=== PATIENT | male | born 1990 | race Caucasian/White ===

== ENCOUNTER 2023-06-07 09:50 | Emergency (ER) | payer OTHER, SELFPAY ==
[2023-06-07 09:54] VITALS: BP 134/70; PULSE 95; RESP 14; TEMP 36.4; O2SAT 99
[2023-06-07 10:01] VITALS: BP 134/70; PULSE 95; RESP 14; TEMP 36.4; O2SAT 99
--- NOTE | 2023-06-07 10:03 | ED.URI ---
HPI - URI/Sore Throat General Chief Complaint: Upper Respiratory Infection Stated Complaint: Sinus Congestion/Ear Pain History of Present Illness HPI Narrative: Patient presents with nasal congestion runny nose for the past week. Patient denies any fever and states he has taken [id number] DayQuil NyQuil for his symptoms. Patient also complains of left ear pain and a popping sensation and discomfort in the left ear. No drainage from the. Related Data Home Medications Medication Instructions Recorded Confirmed levothyroxine 137 mcg tablet mcg 06/07/23 (Synthroid) Allergies Allergy/AdvReac Type Severity Reaction Status Date / Time Sulfa (Sulfonamide Allergy Unknown Verified 06/07/23 10:00 Antibiotics) Review of Systems Review of Systems: CONSTITUTIONAL: Denies chills, or sweats. Reports fever and generalized body aches EYES: Denies visual changes, redness, or discharge. ENT: Denies otalgia. Reports nasal congestion runny nose and sore throat CARDIOVASCULAR: Denies chest pain, palpitations, or edema. RESPIRATORY: Denies dyspnea. Reports occasional cough GASTROINTESTINAL: Denies abdominal pain, nausea, vomiting, or diarrhea. GENITOURINARY: Denies dysuria or hematuria. SKIN: Denies rash or itching. MUSCULOSKELETAL: Denies back pain, joint pain, or myalgia. Reports generalized body aches NEUROLOGIC: Denies headache, numbness, or weakness. PSYCHIATRIC: Denies anxiety or depression. PMFSH Comments At time of signature, agree with nursing past medical, surgical, social and family history. There is no relevant family history pertinent to the presenting complaint Exam Narrative: The patient is a well-developed, well-nourished in no acute distress. SKIN: Skin is warm and dry without erythema, swelling or exudate. There is good turgor. No tenting. HEAD: Atraumatic. Normocephalic. No temporal or scalp tenderness. EYES: Moist and bright. Sclera and conjunctivae normal. No discharge. PERRLA. Extraocular motions intact. Gross visual acuity intact. EARS: Pinna is normal shape and contour. Clear external auditory canals. Right tM pearly hernandez with good cone of light, no erythema or suppuration. Left TM a dullness with moderate erythema to left canal bilateral cerumen noted no gross hearing deficit. NOSE: pink, moist mucosa with good air movement. Clear rhinorrhea without nasal flaring. Septum midline. Mouth: moist mucous membranes. THROAT; mild erythema noted to posterior oropharynx with moderate postnasal drainage. Without exudate or ulceration.. Uvula midline. Normal movement of soft palate. NECK: Supple and nontender with full range of motion without discomfort. No meningeal signs. LUNGS: Equal and bilateral breath sounds without wheezes, rales or rhonchi. CHEST: The chest wall is without retractions or use of accessory muscles. HEART: Has a regular rate and rhythm without murmur, gallops, click or rub. ABDOMEN: Soft, nontender with positive active bowel sounds. No rebound tenderness. EXTREMITIES: Without cyanosis, clubbing or edema. Equal 2+ distal pulses and 2 second capillary refill noted. NEUROLOGIC: alert, active, . The patient moves all extremities with normal muscle strength. Normal muscle tone is noted. Normal coordination is noted. NO focal neurological findings noted. Course Course Level of Care: Express Care Visit Vital Signs Vital signs: Vital Signs Temperature 36.4 C 06/07/23 09:54 Pulse Rate 95 06/07/23 09:54 Respiratory Rate 14 06/07/23 09:54 Blood Pressure 134/70 06/07/23 09:54 Pulse Oximetry 99 06/07/23 09:54 Oxygen Delivery Room Air 06/07/23 09:54 Temperature 36.4 C 06/07/23 10:01 Pulse Rate 95 06/07/23 10:01 Respiratory Rate 14 06/07/23 10:01 Blood Pressure 134/70 06/07/23 10:01 Pulse Oximetry 99 06/07/23 10:01 Oxygen Delivery Room Air 06/07/23 10:01 Discharge Plan Discharge Clinical Impression: Otitis media, Upper respira
== END 2023-06-07 10:08 | disposition home or self-care (01) ==
PROVIDERS: Emergency Provider Nurse Practitioner Family
DX: H66.92 Otitis media, unspecified, left ear (principal); J06.9 Acute upper respiratory infection, unspecified
CPT/HCPCS: 99213; G0463

== ENCOUNTER 2024-09-20 10:28 | Emergency (ER) | payer OTHER, SELFPAY ==
[2024-09-20 10:56] VITALS: BP 109/64; PULSE 63; RESP 20; TEMP 36.7; O2SAT 100
--- NOTE | 2024-09-20 11:02 | ED_ITS ---
HPI - URI/Sore Throat General Chief Complaint: Upper Respiratory Infection Stated Complaint: Cough/runny nose/congestion Time Seen by Provider: 09/20/24 11:16 Source: patient and RN notes reviewed Mode of arrival: ambulatory Limitations: no limitations History of Present Illness HPI Narrative: 34-year-old male presents with concern for head congestion, cough, runny nose. Reports 2 days of symptoms. He had a negative COVID test yesterday. Denies fever. He has been taking Robitussin. MD elicited complaint: cough and nasal congestion Related Data Home Medications ?Medication ?Instructions ?Recorded ?Confirmed ?Last Taken ?Type levothyroxine 137 mcg tablet mcg 06/07/23 Unknown History (Synthroid) semaglutide (weight loss) 1.7 mg subcut 09/20/24 Unknown History mg/0.75 mL subcutaneous pen injector (Wegovy) Allergies Allergy/AdvReac Type Severity Reaction Status Date / Time Sulfa (Sulfonamide Allergy Unknown Verified 09/20/24 10:58 Antibiotics) Review of Systems Review of Systems: CONSTITUTIONAL: Denies malaise, chills, sweats, or fever. EYES: Denies visual changes, redness, or discharge. ENT: Reports rhinorrhea, congestion CARDIOVASCULAR: Denies chest pain, palpitations, or edema. RESPIRATORY: Reports cough. Denies dyspnea. GASTROINTESTINAL: Denies abdominal pain, nausea, vomiting, diarrhea SKIN: Denies rash or itching. MUSCULOSKELETAL: Reports myalgia. NEUROLOGIC: Denies headache. All systems reviewed & are unremarkable except as noted in HPI and below PMFSH Comments At time of signature, agree with nursing past medical, surgical, social and family history. There is no relevant family history pertinent to the presenting complaint Exam Narrative: GENERAL: Well-appearing, well-nourished, and in no acute distress. HEAD: Normocephalic EYES: PERRLA, conjunctivae clear ENT: Nares clear. Mucous membranes moist. TM pearly hopper with sharp light reflex bilaterally; no tragal tenderness. Oropharynx not erythematous without lesions. Tonsils not enlarged and without exudate, no drooling, no hoarseness, no trismus, uvula midline. NECK: Supple. No lymphadenopathy CHEST: Clear to auscultation, breath sounds equal. No wheezing, rhonchi, rales, or stridor. No respiratory distress, speaks in full sentences. HEART: Regular rate and rhythm. No murmur heard. SKIN: Warm, dry, no rash. NEURO: Alert and oriented x3. PSYCH: Normal mood and affect Course Course Emergency Course: Patient is aware of diagnosis, understands and agrees to treatment plan. Anticipatory guidance given. Patient agrees to follow-up as directed and is aware of reasons to seek care at the emergency department. Portions of this record may have been created with voice recognition software Level of Care: Express Care Visit Vital Signs Vital signs: Reviewed. MDM - URI/Sore Throat MDM Narrative Medical decision making narrative: Differential diagnosis considered: Leung virus, strep pharyngitis, allergic rhinitis, upper respiratory tract infection, sinusitis, rhinosinusitis, nasopharyngitis. viral pharyngitis, otitis media, otitis externa, pneumonia, bronchitis, viral cough syndrome, viral syndrome, and influenza. Exam findings show no acute concerns or changes; patient is non-toxic appearing and is in no distress. Patient is appropriate for outpatient treatment and follow-up. Lab Data Attestation: I reviewed the patient's lab results. Critical Care Time Critical Care Time Critical Care Time: No Discharge Plan Discharge Clinical Impression: Upper respiratory infection Patient Disposition: Home, Self-Care Condition: Stable Instructions: Upper Respiratory Infection (ED) Additional Instructions: Your rapid COVID and flu tests are negative -Take strict precautions to prevent the spread of your virus. Be diligent about covering your cough (even when you are alone) and washing your hands frequently. -You may contagious until you have been symptom and/or fever free for 24 hours without fever reducing medicine -Alternate Ibuprofen and Tylenol for pain and fever relief (per package directions) -Drink plenty of fluid - drink fluid with electrolytes such as Gatorade or other oral re-hydration solution. Avoid caffeine, which can make dehydration worse. -Get plenty of rest to help your body heal. -Use a cool mist humidifier for chest and nasal congestion. -Eat RAW honey or use cough drops to ease throat discomfort -Do not smoke or expose children to secondhand smoke -Wash your hands frequently. -Please follow-up with your primary care doctor in the next 1-2 days if your symptoms do not improve. -If you have any worsening of symptoms or any other concerns please go to the ED immediately. -Please take medications as prescribed and continue taking your home medications as usual. Patient Language: Paraguayan Prescriptions: New pseudoephedrine HCl [12 Hour Decongestant] 120 mg tablet extended release 120 mg PO Q12H PRN (Reason: nasal congestion) Qty: 20 0RF No Action levothyroxine [Synthroid] 137 mcg tablet amoxicillin-pot clavulanate 875-125 mg tablet 1 tablet PO Q12H 7 Days Qty: 14 0RF Wegovy 1.7 mg/0.75 mL pen injector SUBCUT Follow-up/Referrals: PHYSICIAN NOT ON STAFF,NONSTAFF [Primary Care Provider] - Stand Alone Forms: Work/School Release IP Time of Disposition: 11:25
[2024-09-20 11:17] LABS: EDCOVIDSCREEN Negative (Negative); EDINFLUASCREEN Negative (Negative); EDINFLUBSCREEN Negative (Negative)
--- OUTSIDE RECORDS SUMMARY | 2024-09-20 12:26 | XMS_ITS | Referral Summary ---
Author Organization [facility] Address [address] [place] [address] Care Team Providers Care Track Worker Name Role Phone Lara Proctor MD Primary Care Provider [phone] Source Comments [facility] [employer],non-owned Affiliates and Associated Physician Practices is amultiple site organization consisting of ambulatory clinics and hospital sitesin [place], [place], [place] and [place]. This disclosure is being madepursuant to the Care Everywhere program and may not contain all information available regarding this patient. Last updated 18.[facility] [employer] Allergies Active Allergy Reactions Criticality Noted Date Comments Lisinopril Cough Low 12/26/2017 Sulfa Drugs Urticaria Medium 08/08/2017 Childhood Medications * Be aware that medications may not be up to date on this document. Alwaysverify current medications with the patient. Medication Sig Dispensed Refills Start Date End Date Status valsartan (DIOVAN) 80 MG tablet Take 80 mg by mouth once daily Active levothyroxine (TIROSINT) 137 MCG capsule Take 137 mcg by mouth daily before breakfast Active Active Problems No known active problems Immunizations Name Administration Dates Next Due [employer] primary monoval ent 12+ yr 0.3mL Purple cap 09/20/2020,08/29/2020 INFLUENZA VACCINE, QUADR. (F LUZONE; FLULAVAL; FLUARIX; AFLURIA QUADRIVALENT; 6MO+), 0.5 ML (IIV4) 05/08/2018 Social History Tobacco Use Types Packs/Day Years Used Date Smoking Tobacco: Never Smokeless Tobacco: Former Chew Tobacco Cessation:Ready to Q uit: No; Counseling Given: Yes Alcohol Use Standard Drinks/Week Comments Yes 0 (1 standard drink = 0.6 oz pur e alcohol) OCCA. Sex and Gender Information Value Date Recorded Sex Assigned at Male 08/18/2021 8:37 AM [employer] Gender Identity Male 08/18/2021 8:37 AM CHICKEN C[employer]TER Sexual Orientation Straight 08/18/2021 8: 37 AM CH[employer]EN C[employer] Last Filed Vital Signs Vital Sign Reading Time Taken Comments Blood Pressure 138/82 08/18/2021 2:53 PM CHICKEN CUTTER Pulse 104 08/18/2021 2:53 PM CHICKEN C[employer]TER Temperature 37.3 C (99.1 F) 08/18/2021 2:53 PM CHICKEN CUTTER Respiratory Rate 16 08/18/2021 2:53 PM CHICKEN CUTTER Oxygen Saturation 98% 08/18/2021 2:53 PM CHICKEN C[employer]TER Inhaled Oxygen Concentration - - Weight 170.1 kg (375 lb) 08/18/2021 2:53 PM CHICKEN CUTTER Height 193 cm (6' 4 ) 08/18/2021 2:53 PM CHICKEN C[employer]TER Body Mass Index 45.65 08/18/2021 2:53 PM CHICKEN C[employer]TER Plan of Treatment Not on file Care Teams Track Worker Relationship Specialty Start Date End Date Lara Proctor MD PCP - General Internal Medicine 08/08/17
--- OUTSIDE RECORDS SUMMARY | 2024-09-20 12:26 | XMS_ITS | Patient Health Summary ---
Author Organization [facility] Address [address] [place] [address] Care Team Providers Care Residence Counselor Name Role Phone Lara Proctor MD Primary Care Provider Note from [facility],non-owned Affiliates and Associated Physician Practices is amultiple site organization consisting of ambulatory clinics and hospital sitesin [place], [place], [place] and [place]. This disclosure is being madepursuant to the Care Everywhere program and may not contain all information available regarding this patient. Last updated 18.[facility] Allergies * Lisinopril(Cough) -Low Criticality * Sulfa Drugs(Urticaria) -Medium Criticality Medications * Be aware that medications may not be up to date on this document. Alwaysverify current medications with the patient. * valsartan (DIOVAN) 80 MG tablet Take 80 mg by mouth once daily * levothyroxine (TIROSINT) 137 MCG capsule Take 137 mcg by mouth daily before breakfast Active Problems No known active problems Immunizations * Covid Pfizer primary monovalent 12+ yr 0.3mL Purple cap(Given 09/20/2020, 08/29/2020) * INFLUENZA VACCINE, QUADR. (FLUZONE; FLULAVAL; FLUARIX; AFLURIA QUADRIVALENT; 6MO+), 0.5 ML (IIV4)(Given 05/08/2018) Social History Tobacco Use Types Packs/Day Years Used Date Smoking Tobacco: Never Smokeless Tobacco: Former Chew Tobacco Cessation:Ready to Q uit: No; Counseling Given: Yes Alcohol Use Standard Drinks/Week Comments Yes 0 (1 standard drink = 0.6 oz pur e alcohol) OCCA. Sex and Gender Information Value Date Recorded Sex Assigned at Male 08/18/2021 8:37 AM [employer] Gender Identity Male 08/18/2021 8:37 AM [employer] Sexual Orientation Straight 08/18/2021 8 :37 AM [employer] Last Filed Vital Signs Vital Sign Reading Time Taken Comments Blood Pressure 138/82 08/18/2021 2:53 PM [employer] Pulse 104 08/18/2021 2:53 PM [employer] Temperature 37.3 C (99.1 F) 08/18/2021 2:53 PM [employer] Respiratory Rate 16 08/18/2021 2:53 PM [employer] Oxygen Saturation 98% 08/18/2021 2:53 PM [employer] Inhaled Oxygen Concentration - - Weight 170.1 kg (375 lb) 08/18/2021 2:53 PM [employer] Height 193 cm (6' 4 ) 08/18/2021 2:53 PM [employer] Body Mass Index 45.65 08/18/2021 2:53 PM [employer] Procedures * STREP A SCREEN - POINT OF CARE (AMB) STL(Performed 09/02/2018) Performed for Acute pharyngitis, unspecified etiology * STREP A SCREEN - POINT OF CARE (AMB) STL(Performed 12/26/2017) Performed for Strep throat * INFLUENZA A+B - POINT OF CARE (AMB)(Performed 08/08/2017) Performed for Other acute sinusitis, recurrence not specified, Lower respiratory infection * STREP A SCREEN - POINT OF CARE (AMB) STL(Performed 08/08/2017) Performed for Other acute sinusitis, recurrence not specified, Lower respiratory infection Results * STREP A SCREEN - POINT OF CARE (AMB) STL (09/02/2018 12:26 PM [employer]) Only the most recent of3 resultswithin the time period is included. Strep A Rapid POCT Negative Negative Strep A Internal Control Present Lot # [id number] Expiration Date [id number] Throat ENTIRE THROAT (SURFACE REGION OF NECK) / Unknown 09/02/2018 12:26 PM [employer] Mariah Velásquez [facility] - POINT OF CARE ORDERABLES * INFLUENZA A+B - POINT OF CARE (AMB) (08/08/2017) Influenza A Antigen Rapid Negative Negative Influenza B Antigen Rapid Negative Negative Influenza Internal Control present NEGATIVE - POSITIVE Influenza Lot Number [id number] Influenza Expiration Date 04/21/2019 Other NASOPHARYNGEAL SWAB / Unknown 08/08/2017 Namrata Darnell [employer] [facility] - POINT OF CA RE ORDERABLES Care Teams Residence Counselor Relationship Specialty Start Date End Date Lara Proctor MD PCP - General Internal Medicine 08/08/17
--- OUTSIDE RECORDS SUMMARY | 2024-09-20 12:26 | XMS_ITS | Referral Summary ---
Author Organization [facility] Address [address] [place] [address] Care Team Providers Care Residential Appraiser Name Role Phone Katia Miller MD Unavailable [phone] Katia Miller MD Primary Care Provider [phone] Karen Edwards MD Unavailable [phone] Yolanda Patel NP Unavailable Brandan Stewart MD Unavailable [phone] Allergies Active Allergy Reactions Criticality Noted Date Comments Lisinopril Cough Low 04/02/2017 Sulfa (Sulfonamide Antibiotics) Urticaria Medium 08/08/2017 Childhood; thinks throat swelled a little; maybe mild SOB -- long time ago Medications levothyroxine (SYNTHROID) 137 mcg tabletIndicatio ns:Preventative health care,Screening for thyroid disorder TAKE 2 TABLETS DAILY ON AN EMPTY STOMACH 180 tablet 3 03/09/2024 Active semaglutide (WEGOVY) 1.7 mg/0.75 mL auto-injector Inject 0.75 mL (1.7 mg total) under the skin every 7 days 3 mL 2 07/24/2024 Active Active Problems Problem Noted Date Diagnosed Date Excess skin 05/22/2023 Assessment & Plan (05/22/2023 8:23 PM CDT): Provided info for plastic surgeons. Family history of diabetes mellitus 12/21/2021 Metabolic and nutritional disorder 12/21/2021 Overview (03/21/2022): LENORA-IR 4.0 Assessment & Plan (11/08/2022 9:51 AM CDT): Labs. Reviewed most recent labs available. Continue low-carb (<150 g/day), low-glycemic diet. Assessment & Plan (08/21/2022 5:26 PM TUBE FORMER OPERATOR): Reviewed most recent labs available. Continue low-carb (<150 g/day), low- glycemic diet. Continue tirzepatide. Assessment & Plan (08/11/2022 8:45 PM TUBE FORMER OPERATOR): Reviewed most recent labs available. Continue low-carb (<150 g/day), low- glycemic diet. Consider tirzepatide. Assessment & Plan (05/20/2022 3:41 PM CDT): Continue low-carb (<150 g/day), low-glycemic diet. Continue medication. Discussed possibility of difficulty obtaining tirzepatide in future given current demand/supply issues. Counseled to let us know how he is doing after next dose increase to 7.5 mg and we can then decide to increase or not based on how he is doing. Assessment & Plan (03/21/2022 3:45 PM CDT): Reviewed interim labs. Continue low-carb (<150 g/day), low-glycemic diet. Discussed options and will add tirzepatide. Discussed risks, benefits, alternatives, potential side effects. No personal or family history of MTC or MEN2. Reviewed dosing/titration. Warned re potential interaction with OCP. Referred to websites for additional instructions/info/video. For patients seen in office, proper pen use shown with demo pen. Discussed that currently-available coupon should allow them to receive Mounjaro for $25 for 1-2 years depending on insurance however we cannot guarantee coverage/availability. Discussed potential for weight regain after possible discontinuation of medication. (With his current insurance, he should be able to get Saxenda/Wegovy covered.) Assessment & Plan (12/21/2021 5:10 PM CDT): Labs. Reviewed available prior labs in chart and Care Everywhere. Discussed increased risk for DM in setting of obesity and FHx DM. Discussed insulin resistance including effect on weight and risk for progression to diabetes. Recommended low-carb, low-glycemic diet; choose whole grains and avoid more highly processed carbohydrates. Discussed potential benefits of this w/r/t gut microbiome. Referred to ADA and [facility] websites for additional information on topics including glycemic index/carbohydrate choices, protein sources. Weight loss counseling, encounter for 12/21/2021 Assessment & Plan (11/08/2022 9:49 AM CDT): Reviewed calorie restriction based on BMR as previously detailed. Reviewed recommendation/goal of >/= 150 minutes/week moderate-intensity aerobic exercise. Discussed okay to not track food/calories but that if they start to struggle or are not losing weight this is a useful tool to help refocus. Assessment & Plan (08/21/2022 5:26 PM TUBE FORMER OPERATOR): Reviewed calorie restriction based on BMR as previously detailed. Reviewed recommendation/goal of >/= 150 minutes/week moderate-intensity aerobic exercise. Asked to keep detailed food diary for at least 1 week and bring to next visit and/or continue tracking on phone. Assessment & Plan (08/11/2022 8:45 PM TUBE FORMER OPERATOR): Reviewed calorie restriction based on BMR as previously detailed. Reviewed recommendation/goal of >/= 150 minutes/week moderate-intensity aerobic exercise. Asked to keep detailed food diary for at least 1 week and bring to next visit and/or continue tracking on phone. Assessment & Plan (05/20/2022 3:38 PM CDT): Reviewed calorie restriction based on BMR as previously detailed. Reviewed recommendation/goal of >/= 150 minutes/week moderate-intensity aerobic exercise. Commended for excellent diet and exercise regimen. Counseled on ensuring adequate water/electrolyte intake given exercise regimen. Assessment & Plan (03/21/2022 3:30 PM CDT): Reviewed calorie restriction based on BMR as previously detailed. Reviewed recommendation/goal of >/= 150 minutes/week moderate-intensity aerobic exercise. Asked to keep detailed food diary for at least 1 week and bring to next visit and/or continue tracking on phone. Assessment & Plan (12/21/2021 5:08 PM CDT): Discussed that significant health benefits/risk reduction may be seen with even 5% weight loss. Discussed that weight loss will require calorie deficit. Calculated basal metabolic rate and estimated total energy expenditure; discussed 500-1000 kcal/day deficit to lose 1-2 lb per week. Asked to keep detailed food diary for at least 1 week and bring to next visit. Discussed setting SMART goals. Discussed relatively small, although significant, role of exercise in weight loss; greater importance in weight maintenance as shown in Look Ahead study and National Weight Control Registry. Discussed recommendation/goal for 150 minutes per week moderate-intensity aerobic exercise. Post-surgical hypothyroidism 12/10/2021 Assessment & Plan (02/24/2024 3:49 PM CDT): Continue current levothyroxine dose. Will check thyroid function test and adjust levothyroxine dose accordingly as patient lost weight Assessment & Plan (02/18/2023 3:24 PM CDT): Continue current levothyroxine dose. Will check thyroid function test and adjust levothyroxine dose accordingly as patient lost weight Assessment & Plan (03/21/2022 3:47 PM CDT): Reviewed labs -- mgmt per endocrine. Assessment & Plan (12/21/2021 5:10 PM CDT): Per endocrine. Assessment & Plan (12/10/2021 10:55 AM CDT): Continue current levothyroxine dose. Will check thyroid function test and adjust levothyroxine dose accordingly. TSH goal lower normal Papillary thyroid carcinoma 12/10/2021 Assessment & Plan (02/24/2024 3:48 PM CDT): No evidence of tumor recurrence on biochemical and radiological data so far Will plan follow-up with thyroid function test with a TSH goal lower normal. Biochemical evaluation with thyroid tumor markers. We will also obtain neck ultrasound for evaluation of the neck as needed If above are in acceptable range, will plan follow-up on yearly basis Assessment & Plan (02/18/2023 3:25 PM CDT): No evidence of tumor recurrence on biochemical and radiological data so far Will plan follow-up with thyroid function test with a TSH goal lower normal. Biochemical evaluation with thyroid tumor markers. We will also obtain neck ultrasound for evaluation of the neck as needed If above are in acceptable range, will plan follow-up on yearly basis Assessment & Plan (12/10/2021 10:53 AM CDT): No evidence of tumor recurrence on biochemical and radiological data so far- no recent follow up Will plan follow-up with thyroid function test with a TSH goal lower normal. Biochemical evaluation with thyroid tumor markers. We will also obtain neck ultrasound for evaluation of the neck. If above are in acceptable range, will plan follow-up on yearly basis Vitamin D deficiency 12/10/2021 Assessment & Plan (03/21/2022 3:45 PM CDT): On supplement --- 5000 international units. Assessment & Plan (12/21/2021 5:10 PM CDT): Labs. Assessment & Plan (12/10/2021 10:54 AM CDT): Advised daily vit D3 5000 units Recheck D level in 3 m Class 3 severe obesity with serious comorbidity and body mass index (BMI) of 45.0 to 49.9 in adult 10/10/2021 Overview (03/31/2024): November 2021 177.8 kg (392 lb) Height: 193 cm (6' 4 ); BMI 47 Assessment & Plan (11/08/2022 9:54 AM CDT): Obesity is improving..Commended on weight loss to date and discussed anticipated health benefits/risk reduction with this degree of loss. Plan: Diet interventions: as noted.., Regular aerobic exercise program discussed. and Medication as prescribed. Continue Wegovy 2.4 mg weekly. Follow up in [] 1 month; [] 2 months; [] 3 months; [x] 6 months; [] Other: Assessment & Plan (08/21/2022 5:27 PM TUBE FORMER OPERATOR): Obesity is improving..Commended on weight loss to date and discussed anticipated health benefits/risk reduction with this degree of loss. Plan: Diet interventions: as noted.., Regular aerobic exercise program discussed. and Medication as prescribed. Assessment & Plan (08/11/2022 8:47 PM TUBE FORMER OPERATOR): Obesity is improving.. Plan: Diet interventions: as noted.., Regular aerobic exercise program discussed. and Medication as prescribed. Assessment & Plan (05/20/2022 3:33 PM CDT): Obesity is improving with treatment. Diet interventions: as noted. Regular aerobic exercise program discussed. Continue current pharmacotherapy. Assessment & Plan (03/21/2022 3:48 PM CDT): Obesity is improving with lifestyle modifications. Plan: Diet interventions: as noted.., Regular aerobic exercise program discussed. and medication as prescribed. Assessment & Plan (12/10/2021 10:54 AM CDT): Discussed medical and invasive weight loss management options Referral to weight clinic Low HDL (under 40) 05/24/2019 CHEMO (obstructive sleep apnea) 04/07/2017 Overview (12/21/2021): Partial use CPAP. Assessment & Plan (12/21/2021 5:11 PM CDT): Discussed comorbidities associated with sleep apnea, including effects on weight, and stressed importance of adequate treatment if present. Encouraged compliance with CPAP. Mixed hyperlipidemia 09/03/2016 Benign essential HTN 08/06/2016 Overview (12/21/2021): Off med as trial as of 04/2019 Immunizations Immunization Administration Dates Next Due HPV9 05/14/2024,03/11/2024 Hep B Vaccine 02/09/2015,07/25/2014,06/20/2014 Influenza, Quadrivalent, Carito l Culture-based MDCK, Preservative Free, Antibiotic Free, Intramuscular 06/25/2022 Influenza, Quadrivalent, Spl it, Intramuscular 05/24/2019 Influenza, Quadrivalent, Spl it, Preservative Free, Intramuscular 05/12/2023,05/17/2020,05/08/2018,07/16 Influenza, Trivalent, Cell Culture-based MDCK, Preservative Free, Antibiotic Free, Intramuscular 05/14/2024 Influenza, Trivalent, IM (MDV) 08/06/2016 Pfizer SARS-CoV-2 Monovalent Vaccination (12+ Yrs) PURPLE 09/20/2020,08/29/2020 Tdap 09/03/2016 Social History Tobacco Use Types Packs/Day Years Used Date Smoking Tobacco: Never Smokeless Tobacco: Former Chew Quit: 07/28/2017 Tobacco Cessation:Counseling Given: Not Answered PHQ-2 Answer Date Recorded PHQ-2 Total Score (If total score is 3 or more points, staff should administer the PHQ-9) 0 03/11/2024 Personal Safety Answer Date Recorded Getting School Help Needed Not on file 07/28 Sex and Gender Information Value Date Recorded Sex Assigned at Not on file Legal Sex Male 1:00 PM TUBE FORMER OPERATOR Gender Identity Male 01/04/2022 3:42 PM CDT Sexual Orientation Not on file Last Filed Vital Signs Vital Sign Reading Time Taken Comments Blood Pressure 112/68 03/11/2024 8:19 AM CDT Pulse 69 03/11/2024 8:19 AM CDT Temperature 36.6 C (97.9 F) 03/11/2024 8:19 AM CDT Respiratory Rate 18 07/16/2022 8:30 AM TUBE FORMER OPERATOR Oxygen Saturation 100% 03/11/2024 8:19 AM CDT Inhaled Oxygen Concentration - - Weight 97.5 kg (215 lb) 03/31/2024 9:10 AM CDT h ome Height 192.9 cm (6' 3.96 ) 03/31/2024 9:10 AM CD T Body Mass Index 26.2 03/31/2024 9:10 AM CDT Plan of Treatment Not on file Procedures Procedure Name Priority Date/Time Associated Diagnosis Comments HEPATITIS C ANTIBODY Routine 10/10/2021 4:50 PM CDT Preventative health care Encounter for hepatitis C screening test for low risk patient from Last 3 Months or Most Recently Relevant to Health Maintenance Results * Hepatitis C antibody (10/10/2021 4:50 PM CDT) Hep C Ab Nonreactive Nonreactive [facility] Comment:Antibodies to HCV no t detected. Does NOT exclude the possibility of recent exposure to HCV. Blood 10/10/2021 4:50 PM CDT 10/10/2021 5:20 PM CDT us Katia Miller MD LAB MICROBIOLOGY - GENERAL PAM MARIANO Edited Result - Final [facility] Department [place] [address] from Last 3 Months or Most Recently Relevant to Health Maintenance Insurance [employer] Care Teams Residential Appraiser Relationship Specialty Start Date End Date Katia Miller MD [address] [address] PCP - General Internal Medicine 10/12/21 Katia Miller MD [address] [address] Internal Medicine 10/11/21 Karen Edwards MD [address] [address] Referring Physician Internal Medicine 05/20/22 Yolanda Patel NP [address] [address] Nurse Practitioner Nurse Practitioner 05/20/22 Brandan Stewart MD [address] [address] Consulting Physician Endocrinology Diabetes & Metabolism 09/03/23
--- OUTSIDE RECORDS SUMMARY | 2024-09-20 12:26 | XMS_ITS | Clinical Summary ---
Author Organization [facility] Address [address] [place] [address] Phone Care Team Providers Care Ambulance Attendant Name Role Phone Lara Proctor MD Primary Care Provider [phone] Allergies Active Allergy Reactions Criticality Noted Date Comments Lisinopril Cough Low 04/02/2017 Sulfa (Sulfonamide Antibiotics) Hives High 09/2016 Medications levothyroxine 137 mcg tablet Take 137 mcg by mouth 2 times daily . Active Active Problems Problem Noted Date Diagnosed Date Low HDL (under 40) 05/24/2019 CHEMO (obstructive sleep apnea) 04/07/2017 Overview (05/24/2019): Partial use CPAP. Post-surgical hypothyroidism 01/20/2017 Hx of papillary thyroid carcinoma 09/19/2016 Overview (02/19/2019): Thyroidectomy 10/2015- Dr Boyce Path- invasive papillary thyroid carcinoma S/p I-131 treatment post op. Neg uptake remaining. Endo: Dr. Louise Cuevas FH: thyroid cancer 09/19/2016 Mixed hyperlipidemia 09/03/2016 Morbid obesity with body mass index of 40.0-49.9 08/06/2016 Benign essential HTN 08/06/2016 Overview (05/24/2019): Off med as trial as of 04/2019 Chews tobacco regularly 08/06/2016 Overview (05/24/2019): Stopped as of February 2019. Resolved Problems Problem Noted Date Diagnosed Date Resolved Date Thyromegaly 08/06/2016 11/14/2016 Encounters Date Type Department Care Team Description 08/18/2024 External Device Data [facility] Provider, Abstract 08/18/2024 External Device Data [facility] Provider, Abstract from Last 3 Months Immunizations Immunization Administration Dates Next Due (ADACEL/BOOSTRIX)(10 YR UP) TDAP VACCINE, 0.5ML, IM 09/03/2016 (PFIZER)(12 YR UP) COVID-19 VACCINE - EMERGENCY USE AUTHORIZATION, MRNA, [id number](PF) 30 MCG/0.3 ML IM SUSP 08/29/2020 Hepatitis B Vaccine 02/09/2015,07/25/2014,2013 INFLUENZA VACCINE QUADRIVALE NT 3 YR UP PF IM 05/08/2018 INFLUENZA VACCINE QUADRIVALE NT 6 MOS UP IM 05/24/2019 INFLUENZA VACCINE QUADRIVALE NT 6 MOS UP PF IM 05/12/2023,05/17/2020,05/08/2018,2016 Influenza Vaccine Split 3+ Yrs IM 08/06/2016 Family History Medical History Relation Name Comments Healthy Brother 1 Healthy Brother 2 Diabetes Father Sleep Disorder Father CHEMO Cancer Maternal Grandfather eye Cancer Mother thyroid Diabetes Mother Sleep Disorder Mother CHEMO Healthy Paternal Grandmother Relation Name Status Comments Brother 1 Alive Brother 2 Alive Father Alive Maternal Grandfather Maternal Grandmother Mother Alive Paternal Grandfather Paternal Grandmother Alive Social History Tobacco Use Types Packs/Day Years Used Date Smoking Tobacco: Never Smokeless Tobacco: Former Chew Comments:social Alcohol Use Standard Drinks/Week Comments Yes 0 (1 standard drink = 0.6 oz pur e alcohol) BEER SOCIALLY ONCE A WEEK Sex and Gender Information Value Date Recorded Sex Assigned at Not on file Legal Sex Male 4:17 AM AQUATIC HABITAT BIOLOGIST Gender Identity Not on file Sexual Orientation Not on file Last Filed Vital Signs Vital Sign Reading Time Taken Comments Blood Pressure 130/84 09/05/2020 8:29 AM AQUATIC HABITAT BIOLOGIST Pulse 71 09/05/2020 8:03 AM AQUATIC HABITAT BIOLOGIST Temperature 36 C (96.8 F) 09/05/2020 8:03 AM AQUATIC HABITAT BIOLOGIST Respiratory Rate 20 08/31/2019 10:47 AM AQUATIC HABITAT BIOLOGIST Oxygen Saturation 97% 09/05/2020 8:03 AM AQUATIC HABITAT BIOLOGIST Inhaled Oxygen Concentration - - Weight 167.4 kg (369 lb) 09/05/2020 8:03 AM AQUATIC HABITAT BIOLOGIST Height 193 cm (6' 4 ) 09/05/2020 8:03 AM AQUATIC HABITAT BIOLOGIST Body Mass Index 44.92 09/05/2020 8:03 AM AQUATIC HABITAT BIOLOGIST Plan of Treatment Health Maintenance Due Date Last Done Comments HEPATITIS B VACCINES (1 of 3 - 19+ 3-dose series) 2011 02/09/2015, 07/25/2014, 06/20/2014 INFLUENZA VACCINE (#1) 2024 3, 06/25/2022, 05/17/2020, Additional history exists COVID-19 Vaccine ( - 2023-2 5 season) 2024 09/20/2020, 08/29/2020 HPV VACCINES (2 - 3-dose SCD M series) 04/08/2024 03/11/2024 DTAP/TDAP/TD VACCINES (2 - T d or Tdap) 09/03/2026 09/03/2016 Insurance Advance Directives For more information, please contact: [phone] * Full Code (Latest Code Status on File) Date Activated Date Inactivated Comments 10/28/2016 11:15 AM 10/29/2016 10:27 AM * Full Code Date Activated Date Inactivated Comments 10/28/2016 5:55 AM 10/28/2016 11:15 AM Care Teams Ambulance Attendant Relationship Specialty Start Date End Date Lara Proctor MD PCP - General Internal Medicine 08/06/16
--- OUTSIDE RECORDS SUMMARY | 2024-09-20 12:26 | XMS_ITS | Clinical Summary ---
Author Organization [facility] Address [address] [place] [address] Care Team Providers Care Sole Seamer Name Role Phone Katia Miller MD Unavailable [phone] Katia Miller MD Primary Care Provider Karen Edwards MD Unavailable [phone] Yolanda Patel NP Unavailable Brandan Stewart MD Unavailable [phone] Allergies Active Allergy Reactions Criticality Noted [...] diet. Assessment & Plan (08/21/2022 5:26 PM INTERNAL AUDIT SENIOR MANAGER): Reviewed most recent labs available. Continue low-carb (<150 g/day), low- glycemic diet. Continue tirzepatide. Assessment & Plan (08/11/2022 8:45 PM INTERNAL AUDIT SENIOR MANAGER): Reviewed most recent labs available. Continue low-carb [...] w/r/t gut microbiome. Referred to ADA and [facility] websites for additional information on topics [...] refocus. Assessment & Plan (08/21/2022 5:26 PM INTERNAL AUDIT SENIOR MANAGER): Reviewed calorie restriction based on BMR as previously detailed. Reviewed recommendation/goal of >/= 150 minutes/week moderate-intensity aerobic exercise. Asked to keep detailed food diary for at least 1 week and bring to next visit and/or continue tracking on phone. Assessment & Plan (08/11/2022 8:45 PM INTERNAL AUDIT SENIOR MANAGER): Reviewed calorie restriction based on BMR as [...] Other: Assessment & Plan (08/21/2022 5:27 PM INTERNAL AUDIT SENIOR MANAGER): Obesity is improving..Commended on weight loss to date and discussed anticipated health benefits/risk reduction with this degree of loss. Plan: Diet interventions: as noted.., Regular aerobic exercise program discussed. and Medication as prescribed. Assessment & Plan (08/11/2022 8:47 PM INTERNAL AUDIT SENIOR MANAGER): Obesity is improving.. Plan: Diet interventions: as [...] Vaccination (12+ Yrs) PURPLE 09/20/2020,08/29/2020 Tdap 09/03/2016 Surgical History Surgery Date Site/Laterality Comments THYROIDECTOMY Medical History Medical History Date Comments Thyroid cancer (HCC) 2016 papillary t hyroid ca s/p thyroidectomy Vitamin D deficiency Family History Medical History Relation Name Comments Diabetes Father Breast cancer Mother Diabetes Mother Thyroid disease Mother Colon cancer Neg Hx Prostate cancer Neg Hx Relation Name Status Comments Father Mother Social History Tobacco Use Types Packs/Day Years [...] on file Legal Sex Male 1:00 PM INTERNAL AUDIT SENIOR MANAGER Gender Identity Male 01/04/2022 3:42 PM CDT Sexual Orientation Not on file Obstetrics History Last Filed Vital Signs Vital Sign Reading Time Taken Comments Blood Pressure 112/68 03/11/2024 8:19 AM CDT Pulse 69 03/11/2024 8:19 AM CDT Temperature 36.6 C (97.9 F) 03/11/2024 8:19 AM CDT Respiratory Rate 18 07/16/2022 8:30 AM INTERNAL AUDIT SENIOR MANAGER Oxygen Saturation 100% 03/11/2024 8:19 AM CDT Inhaled Oxygen Concentration - - Weight 97.5 kg (215 lb) 03/31/2024 9:10 AM CDT h ome Height 192.9 cm (6' 3.96 ) 03/31/2024 9:10 AM CD T Body Mass Index 26.2 03/31/2024 9:10 AM CDT Plan of Treatment Health Maintenance Due Date Last Done Comments Covid-19 Vaccine ( - season) 2024 09/20/2020, 08/29/2020 HPV Vaccines (3 - 3-dose SCDM series) 09/11/2024 05/14/2024, 03/11/2024 Depression Screening 03/11/2025 03/11/2024, 10/11/19 Regular Well Visit/Exam 18-64 03/11/2025 03/11/2024, 03/11/2024, 10/10/2021 DTaP/Tdap/Td Vaccine (2 - Td or Tdap) 09/03/2026 09/03/2016 Hepatitis B Screening Completed 02/09/2015 , 07/25/2014, 06/20/2014 Hepatitis C Screening Completed 10/10/2021 Influenza Vaccine Completed 05/14/2024, , 06/25/2022, Additional history exists Pneumococcal vaccine <65 Aged Out No longer eligible based on patient's age to complete this topic Varicella Vaccines Discontinued Procedures Procedure Name Priority Date/Time Associated Diagnosis Comments HEPATITIS C ANTIBODY Routine 10/10/2021 4:50 PM CDT Preventative health care Encounter for hepatitis C screening test for low risk patient from Last 3 Months or Most Recently Relevant to Health Maintenance Results * Hepatitis C antibody (10/10/2021 4:50 PM CDT) Hep C Ab Nonreactive Nonreactive [facility] Comment:Antibodies to HCV no t detected. Does NOT exclude the possibility of recent exposure to HCV. Blood 10/10/2021 4:50 PM CDT 10/10/2021 5:20 PM CDT us Katia Miller MD LAB MICROBIOLOGY - GENERAL PAM MARIANO Edited Result - Final [facility] [place] [address] from Last 3 Months or Most Recently Relevant to Health Maintenance Insurance [employer] Address: [place] [address] [employer] Address: [address] [address] [employer] Address: [facility] [address] [place] [address] Care Teams Sole Seamer Relationship Specialty Start Date End Date Katia Miller MD [address] [facility] [address] [place] [id number] PCP - General Internal Medicine 10/12/21 Katia Miller MD [address] [facility] [address] [place] [id number] Internal Medicine 10/11/21 Karen Edwards MD [address] [facility] [address] [place] [address] Referring Physician Internal Medicine 05/20/22 Yolanda Patel NP [address] [facility] [address] [place] [address] Nurse Practitioner Nurse Practitioner 05/20/22 Brandan Stewart MD [address] [facility] [address] [place] [address] Consulting Physician Endocrinology Diabetes & Metabolism 09/03/23
--- OUTSIDE RECORDS SUMMARY | 2024-09-20 12:26 | XMS_ITS | Encounter Summary ---
Author Organization [facility] Address [address] [place] [address] Care Team Providers Care Machine Wedger Name Role Phone Lara Proctor MD Primary Care Provider [phone] Encounter Details Date Type Department Care Team (Latest Contact Info) Description 10/20/2007 Outpatient Historical [facility] Sterling Henley MD [address] [facility] [address] [place] [address] Benign Neoplasm of Skin of Lower Limb, Including Hip Social History Tobacco Use Types Packs/Day Years Used Date Smoking Tobacco: Never Assessed Sex and Gender Information Value Date Recorded Sex Assigned at Not on file Legal Sex 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 [place], [place] [address] Patient: ELMER BARRERA : 1990 Procedure Date: 11/06/2007 Accession Date: 11/06/2007 Case No: [id number] Ordering Dr: STERLING HENLEY Case types AW, BW, FW, NW and SH are performed by [facility], [place], [place] SURGICAL PATHOLOGY & NON-GYNECOLOGIC CYTOPATHOLOGY REPORT DIAGNOSIS SKIN, RIGHT THIGH, EXCISION: - MELANOCYTIC NEVUS, COMPOUND TYPE. Specimen Description: Nevus right thigh. Operative Procedure: Not specified. Patient Information/Histo ry/Diagnosis: Not provided. Gross: Received in one container labeled Elmer Barrera, right thigh nevus is a 0.9 x 0.7-cm unoriented excision of pink-deleon skin excised to a depth of 0.4 cm. There is a 0.8 x 0.7-cm, purple-hopper papule on the skin surface. The margin is inked blue, and the specimen is serially sectioned and submitted entirely in block A1. [facility] 11.06.2007 12:46 pm Microscopic: Received are slides labeled [id number]. Sections of right thigh identify nests of nevus cells distributed along the dermal/epidermal junction. A dermal component is present. Vertical maturation is apparent. Nevus cells are closely associated with cutaneous adnexal structures consistent with a congenital melanocytic nevus. Surgical margins are interpreted as negative. [facility] 11.09.2007 12:14 pm Staging Form: No. ELECTRONIC SIGNATURE FOR BONNIE MOYA M.D.- 11/09/07 02:24 pm INTERFACE SYSTEM 11/06/2007 11:0 9 AM CDT us Sterling Henley MD PATHOLOGY/CYTOLOGY ORDERABLES Final Result INTERFACE SYSTEM Refer to clinic/hospital department documented in this encounter Visit Diagnoses Diagnosis Benign neoplasm of skin of lower limb, including hip documented in this encounter Care Teams Machine Wedger Relationship Specialty Start Date End Date Lara Proctor MD PCP - General Internal Medicine 08/06/16 documented as of this encounter
--- OUTSIDE RECORDS SUMMARY | 2024-09-20 12:26 | XMS_ITS | Clinical Summary ---
Author Organization [facility] Address [address] [place] [address] Care Team Providers Care Theatre Director Name Role Phone Lara Proctor MD Primary Care Provider [phone] Source Comments [facility],non-owned Affiliates and Associated Physician Practices is amultiple site organization consisting of ambulatory clinics and hospital sitesin [place], [place], [place] and [place]. This disclosure is being madepursuant to the Care Everywhere program and may not contain all information available regarding this patient. Last updated 18.[facility] Allergies Active Allergy Reactions Criticality Noted Date [...] problems Immunizations Name Administration Dates Next Due NEMOPTIC primary monoval ent 12+ yr 0.3mL Purple cap 09/20/2020,08/29/2020 INFLUENZA VACCINE, QUADR. (F LUZONE; FLULAVAL; FLUARIX; AFLURIA QUADRIVALENT; 6MO+), 0.5 ML (IIV4) 05/08/2018 Family History Medical History Relation Name Comments Cancer - Thyroid Mother Diabetes - Type 2 Mother Relation Name Status Comments Father Alive Mother Alive Social History Tobacco Use Types Packs/Day Years Used Date Smoking Tobacco: Never Smokeless Tobacco: Former Chew Tobacco Cessation:Ready to Q uit: No; Counseling Given: Yes Alcohol Use Standard Drinks/Week Comments Yes 0 (1 standard drink = 0.6 oz pur e alcohol) OCCA. Sex and Gender Information Value Date Recorded Sex Assigned at Male 08/18/2021 8:37 AM INFORMATICS MANAGER Gender Identity Male 08/18/2021 8:37 AM INFORMATICS MANAGER Sexual Orientation Straight 08/18/2021 8: 37 AM INFORMATICS MANAGER Last Filed Vital Signs Vital Sign Reading Time Taken Comments Blood Pressure 138/82 08/18/2021 2:53 PM INFORMATICS MANAGER Pulse 104 08/18/2021 2:53 PM INFORMATICS MANAGER Temperature 37.3 C (99.1 F) 08/18/2021 2:53 PM INFORMATICS MANAGER Respiratory Rate 16 08/18/2021 2:53 PM INFORMATICS MANAGER Oxygen Saturation 98% 08/18/2021 2:53 PM INFORMATICS MANAGER Inhaled Oxygen Concentration - - Weight 170.1 kg (375 lb) 08/18/2021 2:53 PM INFORMATICS MANAGER Height 193 cm (6' 4 ) 08/18/2021 2:53 PM INFORMATICS MANAGER Body Mass Index 45.65 08/18/2021 2:53 PM INFORMATICS MANAGER Plan of Treatment Health Maintenance Due Date Last Done Comments HIV SCREENING 2007 HEPATITIS C SCREENING 07/14/2010 DTAP/TDAP/TD VACCINES (1 - Tdap) 2011 HEPATITIS B VACCINE (1 of 3 - 19+ 3-dose series) 2011 COVID-19 VACCINE (3 - 2023- season) 2024 09/20/2020, 08/29/2020 INFLUENZA VACCINE (#1) 2024 0, 05/24/2019, 05/08/2018, Additional history exists DEPRESSION SCREENING 07/28/2024 ZOSTER VACCINE (1 of 2) 2042 HIB VACCINE Aged Out No longer eligi ble based on patient's age to complete this topic HPV VACCINE Aged Out No longer eligi ble based on patient's age to complete this topic MENINGOCOCCAL (Group B) VACCINE Aged Out No longer eligible based on patient's age to complete this topic MENINGOCOCCAL VACCINE Aged Out No nikita cynthia eligible based on patient's age to complete this topic PNEUMOCOCCAL VACCINE Aged Out No long er eligible based on patient's age to complete this topic Care Teams Theatre Director Relationship Specialty Start Date End Date Lara Proctor MD PCP - General Internal Medicine 08/08/17
== END 2024-09-20 11:33 | disposition home or self-care (01) ==
PROVIDERS: Emergency Provider Nurse Practitioner
DX: J06.9 Acute upper respiratory infection, unspecified (principal); Z20.822 Contact with and (suspected) exposure to COVID-19
CPT/HCPCS: 87426; 87804; 99213; G0463